=== PATIENT | female | born 1975 | race African-American/Black ===

== ENCOUNTER 2022-02-10 08:28 | Day surgery (SDC) | payer OTHER ==
[2022-02-07 18:08] VITALS: BMI 32.8
[2022-02-10 08:53] VITALS: RESP 20
[2022-02-10 10:20] VITALS: PULSE 60; TEMP 97.8
[2022-02-10 10:24] VITALS: BP 117/55
== END 2022-02-10 10:40 | disposition home or self-care (01) ==
LOC: FASU-ENDO 08:28
PROVIDERS: ATTEND Internal Medicine Gastroenterology
PROC: 0DJD8ZZ Inspection of Lower Intestinal Tract, Via Natural or Artificial Opening Endoscopic (ICD-10-PCS; principal; 2022-02-10 09:20)
DX: Z12.11 Encounter for screening for malignant neoplasm of colon (principal)
CPT/HCPCS: 81025; 82962